=== PATIENT | female | born 1950 | race Hispanic/Latino ===

== ENCOUNTER 2017-09-12 08:33 | Observation (INO) | payer MEDICARE, BC ==
[2017-09-11 14:05] VITALS: BMI 23.4
[2017-09-12] MEDS ORDERED: Lactated Ringer's 1,000 ML IV ONE ×3 (11:41→15:57)
[2017-09-12] MEDS ORDERED: Thrombin Topical 5,000 Int Units Spray Kit ONE (13:10)
[2017-09-12] MEDS ORDERED: ceFAZolin IV 1 gm in Dextrose 1 GM/50 ML BAG IVPB ONE (13:10)
[2017-09-12] MEDS ORDERED: Bupivacaine HCl 0.5% PF (30 ml) Inj ONE (13:10)
[2017-09-12] MEDS ORDERED: Absorbable Gelatin Sponge Size 100 ONE (13:11)
[2017-09-12] MEDS ORDERED: Ropivacaine 0.5% 30ML IV ONE (13:26)
[2017-09-12] MEDS ORDERED: Propofol 10 mg/ml Inj (20 ML) ONE (13:35)
[2017-09-12] MEDS ORDERED: Rocuronium 10 mg/ml (5 ml) ONE (13:36)
[2017-09-12] MEDS ORDERED: Succinylcholine 200 mg/10 ml Inj IV ONE (13:36)
[2017-09-12] MEDS ORDERED: Esmolol 100 mg/10ml Inj IV ONE (13:36)
[2017-09-12] MEDS ORDERED: Lidocaine 2% w Epi 1:100,000 Inj IJ ONE (14:03)
--- NOTE | 2017-09-12 14:06 | PCM.ANESB1 ---
Interscalene Block - Brachial Plexus Date of Procedure: 09/12/17 Anesthesiologist: Dr. Valencia Pre-Procedure Diagnosis: Severe arthritis right shoulder Post-Procedure Diagnosis: Severe arthritis right shoulder Procedure Performed: Interscalene Block of Brachial Plexus Right - Procedure Interscalene Block of Brachial Plexus: This procedure was explained to the patient that it is for post-operative pain management. Consent was obtained after a thorough discussion with the patient regarding the benefits and possible complications of local anesthetic block of the Brachial Plexus at the Interscalene area. The patient was brought to the Operating Room and standard monitors were applied. Time out was held with the circulating nurse to confirm the correct surgery and appropriate block. After induction of general anesthesia, the patient's head was gently rotated away from the right operative shoulder and the anterior scalene groove was carefully palpated. The ultrasound transducer was then applied to the skin in the transverse plane and the brachial plexus was visualized lateral to the carotid artery and in between the anterior and middle scalene muscles. After identification,the anterior lateral portion of the neck was prepped with Chloraprep solution. At this point, a # 22 gauge Stimuplex 2 inches insulated needle was inserted into the interscalene groove and directed in a caudal and midline direction. The needle was inserted lateral to the ultrasound transducer in-plane towards the brachial plexus in a [id number] direction. Needle advancement was performed carefully under direct ultrasound visualization. Nerve stimulator was used and twitched of the affected extremity including the hand brachialis muscles, biceps and the deltoid was obtained at a current of 0.3MA. After repeated negative aspiration, 5cc of 0.5% Ropivacaine were injected and this was followed with 25cc of 0.5% Ropivacaine. Under ultrasound guidance the local anesthetics were observed surrounding the roots of the brachial plexus. The needle was removed intact and sterile dressing was applied. The patient had stable vital signs. The patient tolerated the interscalene block of the bracheal plexus well with stable vital signs and was prepared for subsequent surgery.
[2017-09-12] MEDS ORDERED: ePHEDrine 50 mg/ml Inj ONE (15:09)
[2017-09-12] MEDS ORDERED: HYDROmorphone 0.5 mg/0.5 ml ISec IVP PRN (16:38)
[2017-09-12] MEDS ORDERED: Lactated Ringer's 1,000 ML IV SCH (16:45)
--- NOTE | 2017-09-12 17:16 | CP.PCM.HP ---
History of Present Illness - History of Present Illness History of Present Illness: CC: HX WPW HPI: 67 year old female Hx "arrhythmia" for which she was initiated on Diltiazem 2 years ago, however has been noncompliant, is s/p R shoulder surgery with Dr. France. Patient was requested to be obs overnight given history of WPW and noncompliance with medications. Patient sees a Dr. Darling at [facility] in [facility] for Cardiology. Patient currently HD stable HR 74, BP also reviewed and stable. Discussed with Dr. Hobbs Cardiology, consult appreciated and followed. Patient to be placed on telemetry overnight obs, no medications initiated at this time. NAD. ROS: Per HPI, all other systems reviewed and neg PMH: hx arrhythmia, prescribed Diltiazem, noncomplaint. PSH: ectopic with "tube removal" FH: denies SH: denies ETOH, IVDU. tobacco use 4-6 cigarettes daily, 20 years NKDA Vitals Reviewed GEN: WDWN, ALERT, COOPERATIVE HEENT: NCAT, PERRL, EOMI HEART: RRR, +S1S2, NO MRG LUNG: CTAB, NO WRR ABD: SOFT, NT, ND, NO HSM, NO MASSES EXT: NORMAL PEDAL PULSES, GOOD CAPILLARY REFILL NEURO: AAOX3 SKIN: WARM, DRY PSYCH: NORMAL MOOD, NORMAL AFFECT LABS Most Recent Lab Values Blood Type A POSITIVE 09/12/17 09:15 Blood Type Confirm A POSITIVE 09/12/17 11:10 Antibody Screen Negative 09/12/17 09:15 BBK History Checked No verified bt 09/12/17 09:15 EKG WPW ASSESSMENT AND PLAN 67 year old female Hx "arrhythmia" for which she was initiated on Diltiazem 2 years ago, however has been noncompliant, is s/p R shoulder surgery with Dr. France. Patient was requested to be obs overnight given history of WPW and noncompliance with medications. Patient sees a Dr. Darling at [facility] in [facility] for Cardiology. Patient currently HD stable HR 74, BP also reviewed and stable. Discussed with Dr. Hobbs Cardiology, consult appreciated and followed. Patient to be placed on telemetry overnight obs, no medications initiated at this time. NAD. S/P Shoulder surgery Hx WPW Dr. France Orthopedic Surgery Consult appreciated and followed Pain control pt to be obs overnight at request Dr. France for arrhythmia Cardiology Consult: Dr. Hobbs, appreciated and followed no new medications to be initiated at this time Patient to also follow up with Dr. Darling, her Lighting Designer at [facility] upon discharge as well VTE ppx per ortho Present on Admission - Present on Admission Any Indicators Present on Admission: No Past Patient History - Past Medical History & Family History Past Medical History?: Yes - Past Social History Smoking Status: Light Smoker < 10 Cigarettes Daily - CARDIAC Hx Cardiac Disorders: Yes Hx Cardia Arrhythmia: Yes Hx Hypercholesterolemia: Yes - PULMONARY Hx Respiratory Disorders: No - NEUROLOGICAL Hx Neurological Disorder: No - HEENT Hx HEENT Problems: No - RENAL Hx Chronic Kidney Disease: No - ENDOCRINE/METABOLIC Hx Endocrine Disorders: No - HEMATOLOGICAL/ONCOLOGICAL Hx Blood Disorders: No - INTEGUMENTARY Hx Dermatological Problems: No - MUSCULOSKELETAL/RHEUMATOLOGICAL Hx Musculoskeletal Disorders: Yes Hx Arthritis: Yes - GASTROINTESTINAL Hx Gastrointestinal Disorders: No - GENITOURINARY/GYNECOLOGICAL Hx Genitourinary Disorders: No - PSYCHIATRIC Hx Psychophysiologic Disorder: No - SURGICAL HISTORY Hx Surgeries: Yes Other/Comment: ectopic preg/tubes/ovary removed - ANESTHESIA Hx Anesthesia: Yes Hx Anesthesia Reactions: No Hx Malignant Hyperthermia: No Has any member of the family had a problem w/ anesthesia?: No Meds Allergies/Adverse Reactions: Allergies Allergy/AdvReac Type Severity Reaction Status Date / Time No Known Allergies Allergy Verified 09/11/17 14:05 Results - Vital Signs Recent Vital Signs: Last Vital Signs Temp 98.1 F 09/12/17 09:00 Pulse 67 09/12/17 11:00 Resp 18 09/12/17 09:00 BP 110/68 09/12/17 09:00 Pulse Ox 100 09/12/17 09:00 - Labs Labs: Laboratory Results - last 24 hr 09/12/17 09/12/17 09:15 11:10 Blood Type A POSITIVE Blood Type Confirm A POSITIVE Antibody Screen Negative BBK History Checked No verified bt
--- NOTE | 2017-09-12 17:42 | PCM.SURG1 ---
Surgeon's Initial Post Op Note - Surgeon's Notes Surgeon: judith Extruder: shanda Type of Anesthesia: General Endo Pre-Operative Diagnosis: shoulder djd Operative Findings: see dictation Post-Operative Diagnosis: same Operation Performed: total shoulder replacement Specimen/Specimens Removed: humeral head Estimated Blood Loss: EBL {In ML}: 200 Post-Op Condition: Good Date of Surgery/Procedure: 09/12/17 Time of Surgery/Procedure: 12:00
[2017-09-12] MEDS ORDERED: ceFAZolin 1 GM in Sodium Chloride 0.9% 100 ML IVPB ONE (19:30)
--- NOTE | 2017-09-12 21:07 | CP.PCM.CON ---
History of Present Illness - History of Present Illness History of Present Illness: THE PATIENT IS A 67 YEAR OLD FEMALE WHO WAS ADMITTED TO [facility] TODAY AND HAD A TOTAL RIGHT SHOULDER REPLACEMENT. CARDIOLOGY WAS CALLED TO FOLLOW HER FOR A HISTORY OF WPW. SHE STATES THAT SINCE AN EARLY AGE SHE WOULD NOTICE BRIEF PALPITATION EPISODES FOR A SECOND OR TWO AND DID NOT THINK MUCH OF IT. ABOUT FIVE YEARS AGO SHE HAD PALPITATIONS FOR HOURS AND WENT TO AN [facility] AND WAS TRANSFERRED TO [facility] IN [facility] WHERE SHE LIVES. SHE SAW CARDIOLOGISTS AND WAS TREATED WITH MEDICINES. SHE ALSO STATES THAT SHE HAD AN ELECTROPHYSIOLOGY STUDY FOR POSSIBLE WPW ABLATION BUT ABLATION WAS NOT PERFORMED THEY COULD NOT INDUCE THE ARRYTHMIA. SHE FOLLOWS WITH A MAINTENANCE ADVISOR IN [facility] AND WAS GIVEN A MEDICINE THAT SHE BELIEVES WAS DILTIAZEM BUT SHE STOPPED TAKING IT SHE HASN'T HAD AN ATTACK FOR YEARS. SHE DENIES ANY RECENT PALPITAIONS AND NEVER HAD SYNCOPE. SHE STATES SHE HAS A STRESS TEST AND ECHOCARDIOGRAM PERFORMED AND SHE BEKIEVES THEY WERE GOOD. SHE PRESENTLY STILL PREFERS NOT TO TAKE ANY MEDICINES. SHE DENIES ANY OTHER SIGNIFICANT PAST MEDICAL PROBLEMS. SHE IS A SMOKER. Past Patient History - Past Medical History & Family History Past Medical History?: Yes - Past Social History Smoking Status: Light Smoker < 10 Cigarettes Daily - CARDIAC Hx Cardiac Disorders: Yes Hx Cardia Arrhythmia: Yes Hx Hypercholesterolemia: Yes - PULMONARY Hx Respiratory Disorders: No - NEUROLOGICAL Hx Neurological Disorder: No - HEENT Hx HEENT Problems: No - RENAL Hx Chronic Kidney Disease: No - ENDOCRINE/METABOLIC Hx Endocrine Disorders: No - HEMATOLOGICAL/ONCOLOGICAL Hx Blood Disorders: No - INTEGUMENTARY Hx Dermatological Problems: No - MUSCULOSKELETAL/RHEUMATOLOGICAL Hx Musculoskeletal Disorders: Yes Hx Arthritis: Yes - GASTROINTESTINAL Hx Gastrointestinal Disorders: No - GENITOURINARY/GYNECOLOGICAL Hx Genitourinary Disorders: No - PSYCHIATRIC Hx Psychophysiologic Disorder: No - SURGICAL HISTORY Hx Surgeries: Yes Other/Comment: ectopic preg/tubes/ovary removed - ANESTHESIA Hx Anesthesia: Yes Hx Anesthesia Reactions: No Hx Malignant Hyperthermia: No Has any member of the family had a problem w/ anesthesia?: No Meds Allergies/Adverse Reactions: Allergies Allergy/AdvReac Type Severity Reaction Status Date / Time No Known Allergies Allergy Verified 09/11/17 14:05 - Medications Medications: Current Medications Aspirin (Aspirin) 325 mg PO BID AGNIESZKA Lactated Ringer's (Lactated Ringer's) 1,000 mls @ 100 mls/hr IV .Q10H AGNIESZKA Cefazolin Sodium 1 gm/ Sodium (Chloride) 100 mls @ 100 mls/hr IVPB ONCE ONE PRN Reason: Protocol Stop: 09/13/17 02:29 Oxycodone/Acetaminophen (Percocet 5/325 Mg Tab) 1 tab PO Q4 PRN PRN Reason: Pain, moderate (4-7) Stop: 09/15/17 17:05 Physical Exam - Respiratory Exam Respiratory Exam: Clear to Auscultation Bilateral - Cardiovascular Exam Cardiovascular Exam: REGULAR RHYTHM, +S1, +S2 - Extremities Exam Additional comments: NO LE EDEMA - Additional Findings Additional findings: EKG NSR, WPW SOFTWARE SALES EXECUTIVE NSR Results - Vital Signs Recent Vital Signs: Last Vital Signs Temp 98.3 F 09/12/17 19:46 Pulse 77 09/12/17 19:46 Resp 18 09/12/17 19:46 BP 109/70 09/12/17 19:46 Pulse Ox 97 09/12/17 19:46 - Labs Labs: Laboratory Results - last 24 hr 09/12/17 09/12/17 09:15 11:10 Blood Type A POSITIVE Blood Type Confirm A POSITIVE Antibody Screen Negative BBK History Checked No verified bt Assessment & Plan - Assessment and Plan (Free Text) Assessment: WPW IN SINUS RHYTHM RIGHT SHOULDER REPLACEMENT Plan: THE PATIENT WAS ADMITTED OVERNIGHT TO 4N ON TELEMETRY I WOULD NOT RECOMMEND STARTING HER ON ANY MEDICATION FOR WPW AT THE PRESENT TIME SINE SHE IS AYMPTOMATIC AND IN SINUS RHYTHM AND SHE DOES'T WANT TO START ONE NOW ANYWAY. SHE HAS BEEN ADVISED TO FOLLOW-UP WITH HER MAINTENANCE ADVISOR FOR FUTURE MONITORING AND POSSIBLE TREATMENT
[2017-09-13] MEDS ORDERED: ceFAZolin 1 GM in Sodium Chloride 0.9% 100 ML IVPB ONE (01:30)
[2017-09-13] MEDS: Oxycodone/Acetaminophen 5/325 mg Tab PO PRN ×2 (03:05→09:21)
[2017-09-13 05:30] VITALS: RESP 18; O2SAT 96
--- NOTE | 2017-09-13 07:45 | CP.PCM.PN ---
Subjective - Date & Time of Evaluation Date of Evaluation: 09/13/17 Time of Evaluation: 07:30 - Subjective Subjective: NO PALPITATION DURING THE NIGHT Objective - Vital Signs/Intake and Output Vital Signs (last 24 hours): Temp Pulse Resp BP Pulse Ox 98.2 F 72 18 102/66 96 09/13/17 05:00 09/13/17 05:00 09/13/17 05:00 09/13/17 05:00 09/13/17 05:00 Intake and Output: 09/13/17 09/13/17 06:59 18:59 Intake Total 1000 Balance 1000 - Medications Medications: Current Medications Aspirin (Aspirin) 325 mg PO BID AGNIESZKA Lactated Ringer's (Lactated Ringer's) 1,000 mls @ 100 mls/hr IV .Q10H AGNIESZKA Last Admin: 09/12/17 19:30 Dose: 100 mls/hr Oxycodone/Acetaminophen (Percocet 5/325 Mg Tab) 1 tab PO Q4 PRN PRN Reason: Pain, moderate (4-7) Stop: 09/15/17 17:05 Last Admin: 09/13/17 03:05 Dose: 1 tab - Respiratory Exam Respiratory Exam: Clear to Ausculation Bilateral - Cardiovascular Exam Cardiovascular Exam: REGULAR RHYTHM, +S1, +S2 - Extremities Exam Additional comments: NO LOWER EXTREMITY EDEMA - Additional Findings Additional findings: RESTORER LACE AND TEXTILES NSR Assessment and Plan - Assessment and Plan (Free Text) Assessment: WPW-REMAINS IN SINUS RHYTHM RIGHT SHOULDER REPLACEMENT Plan: OK TO DISCHARGE PATIENT TODAY FROM [facility]ARDIAC [facility] PATIENT WILL FOLLOW UP WITH HER OWN TANBARK PEELER
[2017-09-13 08:06] VITALS: BP 99/65; PULSE 70; TEMP 98.6
--- NOTE | 2017-09-13 10:15 | CP.PCM.DIS ---
Provider - Provider Date of Admission: 09/12/17 17:04 Attending physician: Nalini Tineo DO Primary care physician: Jax France MD Time Spent in preparation of Discharge (in minutes): 30 Diagnosis - Discharge Diagnosis (1) WPW (Lhybc-Lbvvfbvva-Bqbfx syndrome) Status: Acute Hospital Course - Lab Results Lab Results: Most Recent Lab Values Blood Type A POSITIVE 09/12/17 09:15 Blood Type Confirm A POSITIVE 09/12/17 11:10 Antibody Screen Negative 09/12/17 09:15 BBK History Checked No verified bt 09/12/17 09:15 - Hospital Course Hospital Course: 67 year old female Hx "arrhythmia" for which she was initiated on Diltiazem 2 years ago, however has been noncompliant, is s/p R shoulder surgery with Dr. France. Patient was requested to be obs overnight given history of WPW and noncompliance with medications. Patient sees a Dr. Darling at [facility] for Cardiology. Patient currently HD stable HR 74, BP also reviewed and stable. Discussed with Dr. Hobbs Cardiology, consult appreciated and followed. Patient to be placed on telemetry overnight obs, no medications initiated at this time. NAD. S/P Shoulder surgery Hx WPW Dr. France Orthopedic Surgery Consult appreciated and followed Pain control pt to be obs overnight at request Dr. France for arrhythmia Cardiology Consult: Dr. Hobbs, appreciated and followed no new medications to be initiated at this time PATIENT IS STABLE TO BE DISCHARGED HOME WITH FOLLOW UP WITH HER HOSPITAL MANAGER, PCP, AND ORTHOPEDIC SURGERY. Patient to also follow up with Dr. Darling, her Scrum Master at [facility] upon discharge as well Discharge Exam - Head Exam Head Exam: NORMAL INSPECTION, NORMOCEPHALIC - Eye Exam Eye Exam: EOMI, Normal appearance, PERRL Pupil Exam: NORMAL ACCOMODATION - ENT Exam ENT Exam: Mucous Membranes Moist, Normal Oropharynx - Neck Exam Neck exam: Full Rom, Normal Inspection - Respiratory Exam Respiratory Exam: Clear to PA & Lateral, NORMAL BREATHING PATTERN - Cardiovascular Exam Cardiovascular Exam: RRR, +S1, +S2 - GI/Abdominal Exam GI & Abdominal Exam: Normal Bowel Sounds, Soft. absent: Organomegaly, Tenderness - Extremities Exam Extremities exam: normal capillary refill, pedal pulses present - Back Exam Back exam: absent: CVA tenderness (L), CVA tenderness (R) - Neurological Exam Neurological exam: Alert, Oriented x3 - Psychiatric Exam Psychiatric exam: Normal Affect, Normal Mood - Skin Skin Exam: Dry, Normal Color Discharge Plan - Discharge Medications Prescriptions: oxyCODONE/Acetaminophen [Percocet 5/325 mg Tab] 1 tab PO Q4 PRN #20 tab PRN Reason: Pain, Moderate (4-7) - Follow Up Plan Condition: GOOD Disposition: HOME/ ROUTINE Additional Instructions: FOLLOW UP WITH PCP AND ORTHOPEDIC SURGERY IN ONE WEEK. Referrals: Jax France MD [Primary Care Provider] -
--- NOTE | 2017-09-13 11:11 | CARD ---
APPROVED REPORT EKG Measurement Heart [id number] <Conclusion> Normal sinus rhythm [id number] Abnormal ECG
--- NOTE | 2017-09-13 13:01 | RAD ---
PROCEDURE: Radiographs of the Right Shoulder HISTORY: post op right total shoulder replacement COMPARISON: No prior. FINDINGS: BONES: A right shoulder prosthesis humeral head and shaft present orthopedic metallic densities border the glenoid fossa. Inferior glenoid rim osseous hypertrophy posttraumatic and/or post arthro pathic correlate with prior studies. Mild acromioclavicular osteoarthritis. SOFT TISSUES: Normal. OTHER FINDINGS: None. IMPRESSION: Postop changes
--- NOTE | 2017-09-13 21:19 | OP ---
PROCEDURE DATE: 09/12/2017 SURGEON: Jax France MD. CONCRETE PILE DRIVER OPERATOR: Westley Treviño MD. SECOND CONCRETE PILE DRIVER OPERATOR: ROBINSON Joshua. PREOPERATIVE DIAGNOSIS: Severe right shoulder glenohumeral osteoarthritis. POSTOPERATIVE DIAGNOSIS: Severe right shoulder glenohumeral osteoarthritis. PROCEDURE: Right total shoulder replacement using Exactech system, [id number]. IMPLANTS: Exactech primary humeral stem, 13 mm, 1.5-mm offset and 41-mm humeral head. ESTIMATED BLOOD LOSS: 200 mL. DRAINS: None. SPECIMEN: Humeral head. COMPLICATIONS: None. DISPOSITION: Stable to recovery room. INDICATION: This is a 67-year-old right-hand dominant female who presented for evaluation of her right shoulder with long history of pain and functional limitation relative to the use of her shoulder. Patient has attempted conservative treatment and failed without success. Given the nature of the underlying problem and her persistent symptoms, the patient is indicated for surgery. DESCRIPTION OF PROCEDURE: Patient was brought to the operating room and transferred to the operating room table. After regional anesthesia was given followed by general anesthesia, the patient was placed in the seated beach chair position at about 30 degrees. The right upper extremity was then prepped and draped in a standard surgical fashion. Time-out was performed. After time-out, surgery was commenced. An extended deltopectoral incision was utilized, taken sharply down through the skin and subcutaneous tissues. Subcutaneous flaps were elevated. The cephalic vein was identified, dissected, and retracted laterally with the deltoid. The deep deltopectoral interval was identified and developed. The upper border of the pectoralis major was partially released. The subacromial and subdeltoid spaces were established and deep retractors were placed. The lateral border of the conjoint tendon was identified and developed allowing identification of the axillary and musculocutaneous nerves. The anterior humeral circumflex vessels were cauterized. The biceps tendon sheath was opened and the biceps tendon was tenodesed to the pectoralis major. The biceps was resected proximally. The upper and lower portions of the subscapularis were identified and developed. The rotator interval was incised. Next, the subscapularis tendon was tacked with #2 FiberWire suture. Subscapularis tenotomy was then performed. A retractor was placed to protect the axillary nerve while performing the tenotomy. The humerus was then delivered into the wound. Peripheral osteophytes were removed without difficulty, reestablishing the stebbins architecture of the shoulder. Next, the anatomic head and neck cut in the appropriate height, inclination, and version was made. The intramedullary canal was then entered. It was sequentially broached through a 13 mm M size. The trial broach was then removed. A final humeral component was then assembled and placed into the intramedullary canal. Prior to placement of the component, three 2-mm drill holes were made with insertion of the subscapularis tendon on the humeral bone. Then, three #2 FiberTapes were placed into the bone tunnels for later repair of the subscapularis. Also, one #2 FiberWire suture was placed around the neck of the final component. After placement of all the sutures, final component was inserted into the humeral canal to the appropriate depth and version. The head sizer trial guides were then used. A 41 mm x 16 mm head was selected with good coverage of both proximal humerus. The humeral sizer guide was then removed. Connie retractors were then placed for glenoid exposure. The subscapularis was circumferentially mobilized. The labrum was circumferentially excised. A central drill hole was used and a small reamer was used to prepare the glenoid surface. Inline drill guide was used to prepare three drill holes in the glenoid wall for placement of an Inline glenoid component. Once the glenoid was prepared, the trial for small glenoid component was inserted. This was noted to sit appropriately and cover the entire surface of the glenoid. The trial component was then removed. The glenoid wall was then prepared with pulsatile lavage and the peg holes were placed with Surgicel for hemostasis. The Surgicel was removed and cement was injected and impacted and reinjected into the peg hole of the glenoid. A small glenoid component was then inserted and impacted. Any extruding bone cement was removed and the implant was held with visual pressure while the cement hardened. Once the component was fixed, attention was then paid back to the humerus. A 41 x 16 mm essential head trial was placed. The shoulder was reduced and taken through full range of motion. It was noted to be stable and fully mobile with 50% posterior translation and anatomic bounce back into the glenoid wall. These humeral components were selected for final components. The trial components were removed. The wound was copiously irrigated and final head component was placed onto the humeral stem and impacted to its final depth. Next, the FiberTape sutures that were previously placed into the tuberosity were passed through the subscapularis and tacked together over the free limbs reinforcing the bone tunnel repair of the subscapularis tendon. Next, the two free limbs of the Fiber stitch were passed through the subscapularis and tacked in a horizontal mattress again reinforcing the repair of the subscapularis tendon. The rotator interval was repaired with the arm in slight external rotation. The wound was copiously irrigated. The subcutaneous tissue was closed followed by 2-0 Monocryl for the skin. Dry sterile dressing and sling was applied. The patient was placed in a sling and then extubated. She was transferred to the recovery room in stable condition. All counts were correct prior to leaving the operating room. Jax France MD
== END 2017-09-13 14:31 | disposition home or self-care (01) ==
LOC: H.OPSURG 08:33 → H.TEL 17:04
PROVIDERS: ADMIT Student in an Organized Health Care Education/Training Program; ATTEND Student in an Organized Health Care Education/Training Program
DX: M19.011 Primary osteoarthritis, right shoulder (principal); I45.6 Pre-excitation syndrome; E78.00 Pure hypercholesterolemia, unspecified; F17.210 Nicotine dependence, cigarettes, uncomplicated; Z91.14 Patient's other noncompliance with medication regimen; Z91.19 Patient's noncompliance with other medical treatment and regimen
CPT/HCPCS: 23472; 36415; 64415; 73030; 86850; 86900; 88304; 93005; G0378; J0330; J0690; J2001; J2704; J3010; J7120